=== PATIENT | female | born 1970 | race Caucasian/White ===

== ENCOUNTER 2020-08-15 21:40 | Emergency (ER) | payer MEDICAID ==
[~2020-08-15] VITALS: Ht 149.9 cm; Wt 63.0 kg
[2020-08-15 21:42] VITALS: BP 165/98
[2020-08-15] MEDS ORDERED: LIDOCAINE-MPF 1%, 5ML INFIL ONE (22:00)
[2020-08-15] MEDS ORDERED: LIDOCAINE-MPF 1%, 5ML ONE (22:00)
[2020-08-15] MEDS ORDERED: DIPH,PERTUSS(ACELL),TET VAC/PF 0.5 ML IM-VACC ONE ×2 (22:00→22:51)
[2020-08-15] MEDS ORDERED: NEOSPORIN OINT. PKT 1 PACKET ONE (23:25)
== END 2020-08-15 23:57 | disposition home or self-care (01) ==
LOC: ED 22:32
DX: S61.442A Puncture wound with foreign body of left hand, initial encounter (principal); I89.1 Lymphangitis; F15.10 Other stimulant abuse, uncomplicated; F17.210 Nicotine dependence, cigarettes, uncomplicated; Z72.9 Problem related to lifestyle, unspecified; X58.XXXA Exposure to other specified factors, initial encounter; Y93.89 Activity, other specified; Y92.89 Other specified places as the place of occurrence of the external cause; Y99.8 Other external cause status
CPT/HCPCS: 10120; 90471; 90715; 99285; 99406